=== PATIENT | female | born 1990 | race Caucasian/White ===

== ENCOUNTER 2018-10-11 07:42 | Outpatient (CLI) | payer BC ==
--- NOTE | 2018-10-11 10:00 | MRI ---
MRI LEFT KNEE WITHOUT CONTRAST: HISTORY: Pain, M25.562. COMPARISON: MRI left knee from 10/12/2013 and also from 2010. FINDINGS: MEDIAL MENISCUS: Intact. LATERAL MENISCUS: Mild fraying, lateral meniscal body, otherwise intact. ACL/PCL/MCL/LCL: All intact. EXTENSOR MECHANISM: Quadriceps tendon and patella and patellar tendon are intact. There is flattening of the trochlear groove. The lateral patellar facet is over twice the size of th e medial patellar facet. CARTILAGE: There is multifocal full-thickness cartilage fissuring and fraying throughout the lateral patellar facet, as well as the lateral trochlea and trochlear groove. There are large osteophytes o f the patellofemoral compartment. Normal tibial tuberosity/trochlear groove distance. MEDIAL COMPARTMENT: Intact. LATERAL COMPARTMENT: Some mild chondral fraying of the weight bearing surface, lateral femoral condy le and lateral tibial plateau. BONES: There is [id number] medial and lateral compartment osteophyte formation, as well as pat ellofemoral compartment osteophyte formation. SOFT TISSUES: There is a small joint effusion. No free bodies are appreciated. Low grade synovitis . No leaking popliteal cyst. MUSCLES: Muscle signal and bulk are normal. IMPRESSION: 1. Progressive cartilage loss of the patellofemoral compartment with large osteophyte formation and advanced degenerative disease. This is much worse than the 2014 study. 2. The medial and lateral compartment osteophytes have also progressed in size from the comparison e xaminations. 3. 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 Enlargement of the lateral patellar facet relative to the medial patellar facet, and subsequent grade 4 chondrom alacia and large central osteophytes. POS: CET
== END 2018-10-11 07:43 | disposition home or self-care (01) ==
LOC: BICMRI 07:42
PROVIDERS: ATTEND Orthopaedic Surgery
DX: M25.562 Pain in left knee (principal); M17.12 Unilateral primary osteoarthritis, left knee; M94.8X6 Other specified disorders of cartilage, lower leg; M25.762 Osteophyte, left knee; M94.262 Chondromalacia, left knee

== ENCOUNTER 2018-11-03 09:45 | Outpatient (CLI) | payer BC ==
--- NOTE | 2018-11-03 09:58 | RAD ---
FXR Ankle Rt 3 View STANDARD History: [Pain. Doubt A. tach.] Comparison: None. Findings: There is mild bimalleolar soft tissue swelling. No acute fracture or malalignment. There is sclerosis of the os trigonum which is enlarged. Moderate dorsal and plantar calcaneal spurs. There are degenerative changes of the talonavicular join t. Impression: Chronic findings. No acute abnormality. Sclerosis of the enlarged os trigonum can be a so urce of patient's pain.
== END 2018-11-03 09:46 | disposition home or self-care (01) ==
LOC: BICRAD 09:45
PROVIDERS: ATTEND Family Medicine
DX: M25.571 Pain in right ankle and joints of right foot (principal); M89.8X7 Other specified disorders of bone, ankle and foot; M79.89 Other specified soft tissue disorders; M19.071 Primary osteoarthritis, right ankle and foot; M77.31 Calcaneal spur, right foot
CPT/HCPCS: 36415; 80053; 80061; 82306; 84443; 84550; 85025

== ENCOUNTER 2019-12-08 05:30 | Inpatient (IN) | payer BC ==
[2019-12-08] MEDS ORDERED: hydrALAZINE 20 MG/ML VIAL SLOW IVP PRN ×2 (05:49→12:29)
[2019-12-08] MEDS ORDERED: Promethazine HCl 25 MG/ML VIAL IM PRN ×3 (05:49→13:00)
[2019-12-08] MEDS ORDERED: Ondansetron PF 4 MG/2 ML Vial IVP PRN ×3 (05:49→13:00)
[2019-12-08] MEDS: Lactated Ringer's 1,000 ML IV SCH ×2 (05:56→07:09)
[2019-12-08] MEDS ORDERED: CEFAZOLIN 2 GM in Premix Bag 1 BAG IVPB SCH (06:00)
[2019-12-08] MEDS ORDERED: Bicitra 30 ML UDCUP PO SCH (06:00)
[2019-12-08 06:01] VITALS: BMI 41.5
[2019-12-08 06:08] LABS: Hemoglobin 11.9 g/dL (12.0-16.0); Mean Corpuscular HGB CONC 31.7 g/dL (32.0-36.0); Mean Corpuscular Hemoglobin 30.4 pg (27.0-31.0); Mean Corpuscular Volume 95.7 fL (78.0-98.0); Mean Platelet Volume 8.1 fL (7.4-10.4); Platelet Count 149 thou/uL (130-400); RBC Distribution Width 13.2 % (11.5-14.5); Red Blood Cell (RBC) Count 3.93 mill/uL (4.20-5.40); White Blood Cell (WBC) Count 6.2 thou/uL (4.8-10.8)
[2019-12-08 06:48] LABS: Syphilis Antibody Nonreactive (Nonreactive); Syphilis Antibody Index 0.04 S/CO (<1.00 Non-Reactive)
[2019-12-08 06:49] LABS: HBSAg Index 0.19 S/CO (0-0.99); Hep B Surf Ag Non-Reactive S/CO (NonReactive)
[2019-12-08] MEDS ORDERED: Ondansetron PF 4 MG/2 ML Vial ONE (07:06)
[2019-12-08] MEDS ORDERED: Oxytocin 10 UNITS/ML VIAL ONE ×2 (07:06→08:27)
[2019-12-08] MEDS ORDERED: MORPHINE 5 MG/10 ML PF VIAL ONE (07:06)
[2019-12-08] MEDS ORDERED: Methylergonovine 0.2 MG/ML VIAL ONE (07:17)
[2019-12-08] MEDS ORDERED: Carboprost 250 MCG/ML AMP ONE (07:17)
[2019-12-08] MEDS ORDERED: Misoprostol 200 MCG TAB ONE (07:17)
[2019-12-08] MEDS ORDERED: Lidocaine 1% PF 5 ML VIAL ONE (07:56)
[2019-12-08] MEDS ORDERED: EPHEDRINE 25 MG/5 ML SYRINGE ONE ×2 (07:56→08:01)
[2019-12-08] MEDS ORDERED: Tranexamic Acid 1,000 MG/10 ML VIAL ONE (09:34)
[2019-12-08] MEDS ORDERED: Tranexamic Acid 1,000 MG/10 ML VIAL IVP SCH (09:45)
[2019-12-08] MEDS ORDERED: Carboprost 250 MCG/ML AMP IM SCH (09:45)
[2019-12-08] MEDS ORDERED: Communication Order-Pharmacy FS SCH (10:00)
[2019-12-08] MEDS ORDERED: Promethazine HCl 25 MG/ML VIAL SLOW IVP PRN (10:00)
[2019-12-08] MEDS ORDERED: Diphenoxylate HCl/Atropine Tablet PO SCH (10:00)
[2019-12-08] MEDS ORDERED: Ondansetron HCl/PF 4 MG/2 ML Vial IVP PRN (10:00)
[2019-12-08] MEDS ORDERED: Ketorolac Tromethamine 30 MG/ML VIAL IVP PRN (10:00)
[2019-12-08] MEDS ORDERED: diphenhydrAMINE 50 MG/ML VIAL IVP PRN (10:00)
[2019-12-08] MEDS ORDERED: Promethazine HCl 25 MG SUPP PR PRN (10:00)
[2019-12-08] MEDS ORDERED: Naloxone HCl 0.4 mg/ml Vial IVP PRN ×2 (10:00)
[2019-12-08] MEDS ORDERED: Naloxone HCl 0.4 mg/ml Vial IV PRN (10:00)
[2019-12-08] MEDS ORDERED: diphenhydrAMINE 25 MG CAP PO PRN (12:29)
[2019-12-08] MEDS ORDERED: Bisacodyl 10 MG SUPP PR PRN (12:29)
[2019-12-08] MEDS ORDERED: Adacel (T-DAP) 0.5 ML SYRINGE IM ONE (12:29)
[2019-12-08] MEDS ORDERED: NIFEdipine XL 30 MG TAB PO SCH (12:45)
--- NOTE | 2019-12-08 14:28 | OP ---
DATE OF PROCEDURE: 12/08/2019 PREOPERATIVE DIAGNOSES: 1. Chronic hypertension, on medications with increasing blood pressure. 2. 37 weeks. 3. Previous section and declines trial of labor. POSTOPERATIVE DIAGNOSES: 1. Chronic hypertension, on medications with increasing blood pressure. 2. 37 weeks. 3. Previous section and declines trial of labor. PROCEDURE PERFORMED: Repeat low-transverse section with LESLY dressing applied. CAMPUS SECURITY DIRECTOR: Brooke Madrigal MD. ANESTHESIA: Spinal. ANESTHESIOLOGIST: Dr. Segura. ESTIMATED BLOOD LOSS: 600 mL. QUANTITATIVE BLOOD LOSS: Pending at the time of dictation. SPECIMENS REMOVED: Placenta. OPERATIVE FINDINGS: 1. Clear amniotic fluid. Low-transverse hysterotomy without extension. Normal uterus, tubes, and ovaries bilaterally. Vigorous male infant, Apgars and weight pending at the time of dictation to NICU with CPAP. 2. Fundus firm. 3. Surgical site hemostatic. PROCEDURE IN DETAIL: The patient was taken back to the OR with IV fluids running. Once she was in the OR, spinal anesthesia was obtained. After anesthesia was placed, the patient was placed in dorsal supine position with a left lateral tilt. Cordero catheter was placed using sterile technique and 2 g of Ancef were administered. The abdomen was prepped and draped in normal fashion for section. Surgeons were gowned and gloved. A time-out was performed. A Pfannenstiel skin incision was made through the skin. The skin incision was carried down through the subcutaneous tissue to the fascia. Once the fascia was reached, it was incised in the midline and extended superolaterally using curved Walls scissors. Arnoldo clamps were placed at the superior border of the fascia, which was sharply and bluntly dissected off the rectus abdominis muscles in a cephalad direction. In similar fashion, the clamp was placed at the inferior border of the fascia, which was dissected away from the rectus muscles down towards the level of the pubic symphysis. The rectus muscles were bluntly in the midline. The peritoneum was bluntly entered and stretched laterally. An Booker O retractor was placed into the peritoneal cavity for retraction, visualization, and protection of the wound. A low-transverse hysterotomy was made with a scalpel and was extended using the Glez maneuver. Amniotomy was performed and clear fluid was noted. The infant was delivered without difficulty through the hysterotomy from vertex presentation. The nose and mouth were suctioned. Cord was doubly clamped and cut and the infant was handed off to special care nurses in attendance. Cord blood was collected. The placenta was delivered. The uterus was exteriorized, massaged to firm and cleared of clot and debris. The uterus was returned to the abdominal cavity and the hysterotomy was closed using Monocryl suture in a running locked fashion. After the hysterotomy was closed and hemostasis was noted, the hysterotomy and paracolic gutters were irrigated and suctioned dry. The hysterotomy was inspected again with no bleeding noted. The Booker O retractor was removed from the peritoneal cavity. The fascia and rectus muscles were inspected and any small areas of bleeding were controlled with Bovie cauterization. The rectus fascia was then reapproximated from corner to corner and tied together in the midline using PDS suture in a running fashion. After the fascia was reapproximated, the subcutaneous layer was copiously irrigated and dry. Small areas of bleeding were controlled with Bovie cauterization. The subcutaneous layer was closed with a plain gut suture in 2 layers. The subcuticular layer was closed with 4-0 Monocryl and a LESLY dressing. Sterile dressing was applied. The patient tolerated the procedure well. There were no complications and the counts were correct. Job ID: [id number]
[2019-12-08] MEDS: Prenatal Vitamin 1 TAB PO SCH (14:57)
[2019-12-08] MEDS: Docusate Calcium (SURFAK) 240 MG CAP PO SCH ×2 (14:57→20:21)
[2019-12-08] MEDS: Ferrous Sulfate 325 MG TAB PO SCH ×2 (14:57→19:15)
[2019-12-08] MEDS: HYDROcodone/Acetaminophen 5/325 mg Tablet PO PRN (20:21)
[2019-12-08] MEDS ORDERED: HYDROcodone/Acetaminophen 5/325 mg Tablet PO PRN (22:00)
[2019-12-09] MEDS: HYDROcodone/Acetaminophen 5/325 mg Tablet PO PRN ×5 (00:14→17:49)
[2019-12-09 06:12] LABS: Hemoglobin 10.5 g/dL (12.0-16.0); Mean Corpuscular HGB CONC 32.8 g/dL (32.0-36.0); Mean Corpuscular Hemoglobin 31.4 pg (27.0-31.0); Mean Corpuscular Volume 95.6 fL (78.0-98.0); Platelet Count 165 thou/uL (130-400); RBC Distribution Width 13.2 % (11.5-14.5); Red Blood Cell (RBC) Count 3.36 mill/uL (4.20-5.40); White Blood Cell (WBC) Count 8.9 thou/uL (4.8-10.8)
[2019-12-09] MEDS: Ferrous Sulfate 325 MG TAB PO SCH ×2 (09:21→21:17)
[2019-12-09] MEDS: Docusate Calcium (SURFAK) 240 MG CAP PO SCH ×2 (09:21→21:17)
[2019-12-09] MEDS: Prenatal Vitamin 1 TAB PO SCH (09:21)
[2019-12-09] MEDS: Simethicone Chewable 80 MG TAB PO PRN ×3 (09:23→17:49)
[2019-12-09] MEDS: NIFEdipine XL 30 MG TAB PO SCH (09:27)
--- NOTE | 2019-12-09 12:12 | PDOC.PP ---
Post Progress Note Post Day #: 1 PO intake tolerated: yes Flatus: yes Ambulation: yes Vital Signs (12 hours) Temp Pulse Resp BP BP Pulse Ox 12/09/19 11:27 98.8 F 98 16 107/56 L 94 L 12/09/19 09:27 94 114/64 12/09/19 07:13 99.0 F 94 12 114/64 95 Weight Weight 290 lb - Physical Examination General: NAD Respiratory: non-labored breathing Abdominal: no distention, appropriately TTP Fundus firm & at: umb Skin: CS incision dry & intact (bandage in place) Neurological: no gross focal deficits Psychiatric: normal affect Result Diagrams: 12/09/19 05:50 Additional Labs: Post Labs Blood Type A POSITIVE 12/08/19 05:58 Hep Bs Antigen Non-Reactive S/CO (NonReactive) 12/08/19 05:58 - Assessment/Plan POD1 s/p RCS at 37w 2/2 CHTN VSSAF CHTN- Bp wnl, cont procardia with hold parameters, no sx PIH Mild anemia d/t surgical blood loss, no sx anemia, hgb 10.5 postop, cont PNV on DC Routine postop advances in NICU Cont postop care.
[2019-12-09] MEDS: Ibuprofen 800 MG TAB PO SCH ×2 (13:54→21:17)
[2019-12-10] MEDS: Ibuprofen 800 MG TAB PO SCH ×2 (06:05→14:45)
[2019-12-10] MEDS: Docusate Calcium (SURFAK) 240 MG CAP PO SCH (07:31)
[2019-12-10] MEDS: NIFEdipine XL 30 MG TAB PO SCH (07:31)
[2019-12-10] MEDS: Prenatal Vitamin 1 TAB PO SCH (07:32)
[2019-12-10] MEDS: Ferrous Sulfate 325 MG TAB PO SCH (07:33)
[2019-12-10 08:14] VITALS: BP 113/68; TEMP 98.1
--- NOTE | 2019-12-10 08:41 | PRG ---
DATE OF SERVICE: 12/10/2019 SUBJECTIVE: The patient is a 29-year-old female, postop day 2 status post scheduled repeat complicated by chronic hypertension. The patient today is tolerating p.o. voiding on her own having decreased lochia and good pain control. OBJECTIVE: VITAL SIGNS: Blood pressure 112/54, temperature 98.4, pulse of 86, respiratory rate 16. GENERAL: She appears to be in no acute distress. She is alert, oriented, cooperative, and pleasant to interact with. HEENT: Head is normocephalic, atraumatic. Incision is bandaged with a skin vacuum device. EXTREMITIES: Nontender. Nonedematous. ASSESSMENT AND PLAN: The patient is postop day 2, status post repeat here for continued recovery. Baby is in the NICU currently and unsure how long baby will be here. The patient has expressed an interest should the baby be expected to be admitted for quite some time, they would like to go home later today. If baby can be discharged in the next day or two, anticipate discharge in the next day or two. Then they would like to stay. We will follow up with this afternoon with the bacon stringer. Job ID: [id number]
--- NOTE | 2019-12-10 13:14 | PDOC.EVN ---
Event Note - Event Note Event Note: Baby in NICU requires transfer, wants to go home. Tolerating diet. VSS, BPs= 94/50, 112/54, 113,/68. AF. Wound clean with wound vac in place. Plan: DC per pt. request with precautions. Has appt. set with Dr. Jolley this week, hold Procardia for now.
== END 2019-12-10 17:45 | disposition home or self-care (01) | DRG 788 ==
LOC: L&D 05:30 → 3SW 13:02
PROVIDERS: ADMIT Obstetrics & Gynecology; ATTEND Obstetrics & Gynecology
PROC: 10D00Z1 Extraction of Products of Conception, Low, Open Approach (ICD-10-PCS; principal; 2019-12-08)
DX: O34.211 Maternal care for low transverse scar from previous cesarean delivery (principal); Z3A.37 37 weeks gestation of pregnancy; Z37.0 Single live birth; O16.4 Unspecified maternal hypertension, complicating childbirth; O99.02 Anemia complicating childbirth; D50.0 Iron deficiency anemia secondary to blood loss (chronic)
CPT/HCPCS: 36415; 51702; 85027; 86780; 86850; 86900; 86901; 87340; J0690; J1200; J2001; J2210; J2274; J2405; J2590; J3490; Q0163

== ENCOUNTER 2020-05-23 13:33 | Outpatient (CLI) | payer BC | END 2020-05-23 13:34 | disposition home or self-care (01) | LOC: DTY/OP 13:33 | PROVIDERS: ATTEND Surgery | DX: E66.01 Morbid (severe) obesity due to excess calories (principal) | CPT/HCPCS: 97802 ==

== ENCOUNTER 2020-07-06 07:13 | Outpatient (CLI) | payer BC ==
--- NOTE | 2020-07-06 16:49 | RAD ---
TWO VIEW CHEST: 07/06/20 HISTORY: Preop. Lungs appear clear. Heart and mediastinum unremarkable. Osseous structures unremarkable. IMPRESSION: Unremarkable chest. POS: AGW
[2020-07-06 17:29] LABS: #Eosinphils 0.1 10x3/uL (0.0-0.5); #Monocytes 0.5 10x3/uL (0.0-1.1); %Basophils 0.3 % (0.0-2.0); %Lymphocytes 21.9 % (18.0-47.0); %Monocytes 8.3 % (0.0-10.0); %Neutrophils 68.3 % (40.0-75.0); Mean Corpuscular HGB CONC 31.6 G/DL (32.0-36.0); Mean Corpuscular Hemoglobin 29.7 PG (27.0-33.0); Mean Corpuscular Volume 94.1 fl (80.0-100.0); Mean Platelet Volume 10.6 fl (7.4-10.4); Platelet Count 199 10x3/uL (130-400); Red Blood Cell (RBC) Count 4.37 10x6/uL (3.90-5.20); White Blood Cell (WBC) Count 5.8 10x3/uL (4.5-11.0)
[2020-07-06 18:00] LABS: ALT (SGPT) 20 U/L (8-55); AST (SGOT) 26 U/L (5-34); Albumin 4.6 g/dL (3.5-5.0); Alkaline Phosphatase 57 U/L (40-110); Anion Gap 15 mmol/L (10-20); BUN (Urea Nitrogen) 16 mg/dL (7.0-18.7); Bilirubin, Total 0.4 mg/dL (0.2-1.2); Calc. Creatinine Clearance 0 mL/min (70-130); Calcium 9.9 mg/dL (7.8-10.44); Carbon Dioxide 25 mmol/L (22-29); Chloride 104 mmol/L (98-107); Globulin 3.1 g/dL (2.4-3.5); Glucose 87 mg/dL (70-105); Potassium 4.3 mmol/L (3.5-5.1); Protein, Total 7.7 g/dL (6.0-8.3); Sodium 140 mmol/L (136-145)
[2020-07-06 18:01] LABS: BHCG - Serum Negative (NEGATIVE); Pregs Control Background? CLEAR/WHITE (CLR/WHITE); Pregs Control Bar Appear? YES (CONTROL BAR)
[2020-07-06 20:41] LABS: Hemoglobin A1c 5.3 % (4.0-6.0)
[2020-07-07 03:28] LABS: SARS-CoV-2 MS2 Positive; SARS-CoV-2 N Gene Negative; SARS-CoV-2 S Gene Negative; SARS-CoV-2 by NAA Not Detected (NotDetected); SARS-CoV-2 orf1ab Negative
--- NOTE | 2020-07-09 16:18 | EKG ---
Test Reason : Blood Pressure : / mmHG Vent. Rate : 107 BPM Atrial Rate : 107 BPM P-R Int : 146 ms QRS Dur : 090 ms QT Int : 344 ms P-R-T Axes : 052 043 020 degrees QTc Int : 459 ms Sinus tachycardia Otherwise normal ECG No previous ECGs available Confirmed by DR. Arnol HOWARD ([id number]) on 07/09/2020 4:18:29 PM Referred By: UNRULY Confirmed By:DR. Arnol HOWARD
== END 2020-07-06 07:14 | disposition home or self-care (01) ==
LOC: LABBT 07:13
PROVIDERS: ATTEND Surgery
DX: Z01.818 Encounter for other preprocedural examination (principal); E66.01 Morbid (severe) obesity due to excess calories; Z20.828 Contact with and (suspected) exposure to other viral communicable diseases
CPT/HCPCS: 71046; 80053; 83036; 84703; 85025; 87635; 93005; 93010; U0003

== ENCOUNTER 2020-07-06 15:00 | Inpatient (IN) | payer BC ==
[2020-07-11] MEDS ORDERED: Levofloxacin 500 mg/D5W 100 ml Premix Bag ONE (06:29)
[2020-07-11] MEDS ORDERED: Heparin 5,000 UNITS/ML VIAL ONE (06:29)
[2020-07-11] MEDS ORDERED: Fentanyl 250 MCG/5 ML VIAL ONE (06:33)
[2020-07-11] MEDS ORDERED: Midazolam HCl 2 mg/2 ml Vial ONE (06:33)
[2020-07-11] MEDS ORDERED: Bupivacaine 0.25% HCL 30 ML VIAL ONE (06:46)
[2020-07-11] MEDS ORDERED: Lidocaine 1% w/Epinephrine 1:100K 20 ML VIAL ONE (06:46)
[2020-07-11] MEDS ORDERED: hydrALAZINE 20 MG/ML VIAL SLOW IVP PRN (08:30)
[2020-07-11] MEDS ORDERED: Ondansetron PF 4 MG/2 ML Vial IVP PRN ×2 (08:30→08:51)
[2020-07-11] MEDS ORDERED: Hydrocodone-Acetamin 15 ML UDCUP PO PRN (08:30)
[2020-07-11] MEDS ORDERED: Dextrose 50% Abboject 50 ML SYRINGE SLOW IVP PRN (08:30)
[2020-07-11] MEDS ORDERED: Promethazine HCl 25 MG/ML VIAL IM PRN ×3 (08:30→08:51)
[2020-07-11] MEDS ORDERED: Dextrose 5% in Water 1,000 ML IV PRN (08:30)
[2020-07-11] MEDS ORDERED: diphenhydrAMINE 50 MG/ML VIAL IVP PRN ×2 (08:30→08:51)
[2020-07-11] MEDS ORDERED: Fentanyl 100 MCG/2 ML VIAL ONE ×2 (08:38→08:57)
[2020-07-11] MEDS ORDERED: PROPOFOL 200 MG/20 ML VIAL ONE (08:40)
[2020-07-11] MEDS ORDERED: Dexamethasone 20 MG/5 ML VIAL ONE (08:40)
[2020-07-11] MEDS ORDERED: Ondansetron PF 4 MG/2 ML Vial ONE (08:40)
[2020-07-11] MEDS ORDERED: Glycopyrrolate 0.2 MG/ML 5 ML SYRINGE ONE (08:40)
[2020-07-11] MEDS ORDERED: Rocuronium Bromide 10 MG/ML (10ML VIAL) ONE (08:40)
[2020-07-11] MEDS ORDERED: Lidocaine 1% PF 5 ML VIAL ONE (08:40)
[2020-07-11] MEDS ORDERED: Esmolol 100 MG/10 ML VIAL ONE (08:40)
[2020-07-11] MEDS ORDERED: Ondansetron HCl/PF 4 MG/2 ML Vial IVP PRN (08:45)
[2020-07-11] MEDS ORDERED: Promethazine HCl 25 MG/ML VIAL SLOW IVP PRN (08:45)
[2020-07-11] MEDS ORDERED: HYDROmorphone 2 MG/ML VIAL SLOW IVP PRN (08:45)
[2020-07-11] MEDS ORDERED: Zolpidem Tartrate 5 MG TAB PO PRN (08:51)
[2020-07-11] MEDS ORDERED: diphenhydrAMINE 25 MG CAP PO PRN (08:51)
[2020-07-11] MEDS ORDERED: Naloxone HCl 0.4 mg/ml Vial IV PRN (08:51)
[2020-07-11] MEDS ORDERED: diphenhydrAMINE 50 MG/ML VIAL IM PRN (08:51)
[2020-07-11] MEDS ORDERED: fentaNYL Citrate/PF 2,000 MCG in Sodium Chloride 0.9% 60 ML IV PRN (08:51)
[2020-07-11] MEDS ORDERED: Enoxaparin Sodium 40 MG/0.4 ML SYRINGE SC SCH (09:00)
[2020-07-11] MEDS ORDERED: Communication Order-Pharmacy FS PRN (09:00)
--- NOTE | 2020-07-11 09:13 | OP ---
DATE OF PROCEDURE: 07/11/2020 PREOPERATIVE DIAGNOSIS: Morbid obesity. PROCEDURE PERFORMED: Laparoscopic sleeve gastrectomy with intraoperative esophagogastroscopy. INDICATIONS: A 29-year-old female, morbidly obese, who has attempted multiple weight loss programs without success. FINDINGS: A 38-Bhutanese bougie used. DESCRIPTION OF PROCEDURE: After informed consent was obtained, the patient was taken to the operating room and given general endotracheal anesthesia, placed in the supine position. Her abdomen was prepped and draped in usual fashion. Local anesthesia was infiltrated subcutaneously and deep, a 12 mm incision was performed approximately 8 inches below the xiphoid, slight to the left. A Veress needle inserted. Drop test performed. Pneumoperitoneum was created to a volume of 2 L of carbon dioxide. Utilizing a bladeless 12 mm trocar and 0-degree laparoscope, direct visual entry in the abdominal cavity was performed. Pneumoperitoneum was created to a pressure 15 mmHg, and the patient placed in the steep reverse Trendelenburg position. Maty liver retractor inserted. The left lobe of the liver retracted superiorly. The pylorus identified, and a 12-mm port placed on the right beneath it and two 12s placed left subcostal. The omentum was taken off the greater curvature 5 cm from the pylorus utilizing the LigaSure. Short gastrics divided with LigaSure and left crura defined with LigaSure. A 38-Bhutanese bougie inserted, directed into the antrum. The linear 60 mm green load stapler using Ethicon staple reinforcements was used to divide the antrum to the bougie, gold load along the bougie and a series of blues through the angle of His. Intraoperative endoscopy was performed. The video endoscope was inserted under direct vision, advanced into the sleeve. Staple line inspected. There was no bleeding. Staple line then tested by inflating the new stomach with pressurized air under water and there was no air leak. Stomach decompressed. Scope removed. The remnant stomach removed from the abdomen through the left lateral port site. The fascia closed with 0 Vicryl suture and the GraNee needle. Trocars and retractors removed. The skin closed with interrupted 4-0 Rapide. Dermabond applied. The patient tolerated the procedure well, transferred to Recovery in good condition. Sponge and needle count verified correct x2. Job ID: [id number]
[2020-07-11] MEDS ORDERED: Promethazine HCl 25 MG/ML VIAL ONE (10:11)
[2020-07-11] MEDS ORDERED: D5 1/2 NS w/20 mEq KCL 1,000 ML ONE (10:45)
[2020-07-11] MEDS: D5 1/2 NS w/20 mEq KCL 1,000 ML IV SCH ×2 (10:46→18:16)
[2020-07-11] MEDS ORDERED: Ketorolac Tromethamine 30 MG/ML VIAL ONE (12:12)
[2020-07-11] MEDS ORDERED: Sodium Chloride 0.9% 0 ML ONE (12:12)
[2020-07-11] MEDS ORDERED: Sodium Chloride 0.9% 10 ML ONE (12:15)
[2020-07-11] MEDS: Ketorolac Tromethamine 30 MG/ML VIAL IVP SCH ×3 (12:17→23:15)
[2020-07-11] MEDS: Pantoprazole 40 MG VIAL IVP SCH (12:17)
[2020-07-11 17:32] VITALS: BMI 42.7
[2020-07-12] MEDS: D5 1/2 NS w/20 mEq KCL 1,000 ML IV SCH ×2 (00:40→08:34)
[2020-07-12 04:04] VITALS: BP 115/77; TEMP 98.3
[2020-07-12] MEDS: Ketorolac Tromethamine 30 MG/ML VIAL IVP SCH (05:42)
[2020-07-12 06:36] LABS: #Lymphocytes 1.4 thou/uL (1.20-3.40); #Monocytes 0.9 thou/uL (0.11-0.59); #Neutrophils 6.1 thou/uL (1.40-6.50); %Basophils 0.3 % (0.0-1.0); %Eosinophils 0.1 % (0.0-10.0); %Lymphocytes 16.6 % (21.0-51.0); %Monocytes 10.6 % (0.0-10.0); %Neutrophils 72.3 % (42.0-75.0); Hemoglobin 11.9 g/dL (12.0-16.0); Mean Corpuscular HGB CONC 32.7 g/dL (32.0-36.0); Mean Corpuscular Hemoglobin 31.1 pg (27.0-31.0); Mean Platelet Volume 9.1 fL (7.4-10.4); Platelet Count 159 thou/uL (130-400); RBC Distribution Width 13.2 % (11.5-14.5); Red Blood Cell (RBC) Count 3.82 mill/uL (4.20-5.40); White Blood Cell (WBC) Count 8.5 thou/uL (4.8-10.8)
[2020-07-12 07:00] LABS: Anion Gap 14 mmol/L (10-20); BUN (Urea Nitrogen) 8 mg/dL (7.0-18.7); Calc. Creatinine Clearance 235 mL/min (70-130); Calcium 9.3 mg/dL (7.8-10.44); Carbon Dioxide 23 mmol/L (22-29); Chloride 106 mmol/L (98-107); Glucose 100 mg/dL (70-105); Potassium 3.8 mmol/L (3.5-5.1); Sodium 139 mmol/L (136-145)
[2020-07-12] MEDS ORDERED: Hydrocodone-Acetamin 15 ML UDCUP PO PRN (08:18)
[2020-07-12] MEDS: Pantoprazole 40 MG VIAL IVP SCH (08:33)
[2020-07-12] MEDS ORDERED: Enoxaparin Sodium 40 MG/0.4 ML SYRINGE SC SCH (09:00)
--- NOTE | 2020-07-13 12:20 | DIS ---
DATE OF ADMISSION: 07/11/2020 DATE OF DISCHARGE: 07/12/2020 DISCHARGE DIAGNOSIS: Morbid obesity. PROCEDURES DURING ADMISSION: Laparoscopic sleeve gastrectomy, esophagogastroduodenoscopy . HOSPITAL COURSE: The patient was admitted, taken to the operating room where she underwent a sleeve gastrectomy. Postoperatively, she is doing well. She is tolerating liquids well. Pain controlled on p.o. medications. She was discharged to home on hydrocodone and Zofran, will follow up with me in 2 weeks. Job ID: [id number]
== END 2020-07-12 11:30 | disposition home or self-care (01) | DRG 621 ==
LOC: SURG A 07-11 05:50 → SURG B 07-11 13:59
PROVIDERS: ADMIT Surgery; ATTEND Surgery
PROC: 0DB64Z3 Excision of Stomach, Percutaneous Endoscopic Approach, Vertical (ICD-10-PCS; principal; 2020-07-11)
PROC: 0DJ68ZZ Inspection of Stomach, Via Natural or Artificial Opening Endoscopic (ICD-10-PCS; 2020-07-11)
DX: E66.01 Morbid (severe) obesity due to excess calories (principal); M10.9 Gout, unspecified; M19.90 Unspecified osteoarthritis, unspecified site; Z90.89 Acquired absence of other organs; Z68.41 Body mass index [BMI] 40.0-44.9, adult; Z88.0 Allergy status to penicillin
CPT/HCPCS: 36415; 80048; 85025; 88307; 88312; C9113; J1100; J1644; J1650; J1885; J1956; J2250; J2405; J2550; J2704; J3010; J3480; S0020

== ENCOUNTER 2021-12-25 15:34 | Outpatient (CLI) | payer BC | END 2021-12-25 15:35 | disposition home or self-care (01) | LOC: BICRAD 15:34 | PROVIDERS: ATTEND Nurse Practitioner Family | DX: M46.92 Unspecified inflammatory spondylopathy, cervical region (principal); M43.06 Spondylolysis, lumbar region; M47.816 Spondylosis without myelopathy or radiculopathy, lumbar region; M51.37 Other intervertebral disc degeneration, lumbosacral region | CPT/HCPCS: 72040; 72100 ==

== ENCOUNTER 2022-03-24 14:34 | Outpatient (CLI) | payer BC | END 2022-03-24 14:35 | disposition home or self-care (01) | LOC: SCSMRI 14:34 | PROVIDERS: ATTEND Specialist | DX: M47.22 Other spondylosis with radiculopathy, cervical region (principal) | CPT/HCPCS: 72141 ==

== ENCOUNTER 2022-08-15 13:14 | Outpatient (CLI) | payer BC ==
[~2022-08-15 13:14] MED LIST: Magnevist 469MG/ML 20 ML VIAL ONE
== END 2022-08-15 13:15 | disposition home or self-care (01) ==
LOC: MRI 13:14
PROVIDERS: ATTEND Internal Medicine
DX: R51.9 Headache, unspecified (principal); G93.89 Other specified disorders of brain
CPT/HCPCS: 70544; 70553

== ENCOUNTER 2023-03-05 08:32 | Outpatient (CLI) | payer BC | END 2023-03-05 08:33 | disposition home or self-care (01) | LOC: BICMRI 08:32 | PROVIDERS: ATTEND Specialist | DX: M47.22 Other spondylosis with radiculopathy, cervical region (principal) | CPT/HCPCS: 72141 ==

== ENCOUNTER 2024-07-05 14:16 | Outpatient (CLI) | payer BC | END 2024-07-05 14:17 | disposition home or self-care (01) | LOC: BICRAD 14:16 | PROVIDERS: ATTEND Internal Medicine Rheumatology | DX: M25.572 Pain in left ankle and joints of left foot (principal); M25.571 Pain in right ankle and joints of right foot; M77.51 Other enthesopathy of right foot and ankle; M77.52 Other enthesopathy of left foot and ankle ==